=== PATIENT | male | born 1955 | race Caucasian/White ===

== ENCOUNTER 2019-02-01 06:26 | Day surgery (SDC) | payer BC ==
[2019-01-27 16:36] VITALS: BMI 21.7
[~2019-02-01 06:26] MED LIST: DEXAMETHASONE SOD PHOSPHATE 10 MG/ML 1 ML VIAL IV ONE; HEPARIN SODIUM,PORCINE 5,000 UNIT/ML 1 ML VIAL SQ ONE; LIDOCAINE 1% 20 ML VIAL (10MG/ML) FOR IV START INTRADERMA PRN; ONDANSETRON 4 MG/2 ML VIAL IVP ONE; SCOPOLAMINE 1.5MG/72HR PATCH TRANSDERM ONE; ceFAZolin IN SWFI 2 GM/20 ML SYRINGE IVP ONE
[2019-02-01 06:46] VITALS: TEMP 97.9
[2019-02-01] MEDS: LACTATED RINGERS 1,000 ML IV SCH ×2 (07:00→07:01)
[2019-02-01 07:10] LABS: HCT 48.7 % (39.0-53.0); HGB 17.3 gm/dL (13.0-17.5); MCH 35.4 pg (25.0-35.0); MCHC 35.5 g/dL (31.0-37.0); MCV 99.7 fL (80.0-100.0); Mean Platelet Volume 7.1; Platelet Count 116 k/uL (150-450); RBC 4.88 m/uL (4.30-5.90); RDW 11.7 % (11.5-15.5); WBC 4.6 k/uL (3.8-10.6)
[2019-02-01] MEDS ORDERED: MIDAZOLAM (PF) 2 MG/2 ML VIAL IV ONE (07:42)
[2019-02-01] MEDS ORDERED: GLYCOPYRROLATE 0.2 MG/ML 2 ML VIAL ONE (07:51)
[2019-02-01] MEDS ORDERED: LIDOCAINE 1% INJ 10MG/ML (20 ML MDV) ONE (07:51)
[2019-02-01] MEDS ORDERED: NEOSTIGMINE 1 MG/ML 10 ML VIAL ONE (07:51)
[2019-02-01] MEDS ORDERED: HYDROmorphone (PF) 1 MG/ML ONE (07:51)
[2019-02-01] MEDS ORDERED: fentaNYL (PF) 50 MCG/ML 2 ML AMP ONE (07:51)
[2019-02-01] MEDS ORDERED: SUCCINYLCHOLINE CHLORIDE 100 MG/5 ML SYR IV ONE (07:51)
[2019-02-01] MEDS ORDERED: MIDAZOLAM 2 MG/2 ML VIAL ONE (07:51)
[2019-02-01] MEDS ORDERED: PROPOFOL 10 MG/ML 20 ML VIAL IV ONE (07:51)
[2019-02-01] MEDS ORDERED: ROCURONIUM BROMIDE 10 MG/ML 10 ML VIAL IV ONE (07:51)
--- NOTE | 2019-02-01 07:52 | P.GSHP ---
History of Present Illness H&P Date: 02/01/19 Chief Complaint: Bilateral inguinal hernia Patient today for repair of bilateral hernia. He has had these hernias for the last 8-10 years. Right side has typically been larger than the left side. He has had more pain however on the left-hand side. No change in bowel habits. No previous repair. Past Medical History Past Medical History: Hypertension Additional Past Medical History / Comment(s): TINNITUS. ALLYSON INGUINAL HERNIAS. BORDERLINE HIGH CHOLESTEROL. HX KIDNEY STONES. History of Any Multi-Drug Resistant Organisms: None Reported Past Surgical History: Cholecystectomy, Orthopedic Surgery Additional Past Surgical History / Comment(s): LT ELBOW REATTACHED TENDON. KIDNEY STONE ESWL. COLONOSCOPY. Past Anesthesia/Blood Transfusion Reactions: No Reported Reaction Smoking Status: Never smoker - Past Family History Mother Family Medical History: Cancer Medications and Allergies Home Medications Medication Instructions Recorded Confirmed Type Aspirin 162.5 mg PO DAILY 01/27/19 02/01/19 History Cinnamon Bark [Cinnamon] 1,200 mg PO DAILY 01/27/19 02/01/19 History Citracel Capsules 2 cap PO DAILY 01/27/19 02/01/19 History Fish Oil/Dha/Epa [Fish Oil 1,200 1 each PO DAILY 01/27/19 02/01/19 History mg Fish Oil] Multivitamins, Thera [Multivitamin 1 tab PO DAILY 01/27/19 02/01/19 History (formulary)] amLODIPine [Norvasc] 10 mg PO DAILY 01/27/19 02/01/19 History Allergies Allergy/AdvReac Type Severity Reaction Status Date / Time No Known Allergies Allergy Verified 02/01/19 06:36 Surgical - Exam Vital Signs Temp Pulse Resp BP Pulse Ox 97.9 F 82 16 172/99 100 02/01/19 06:43 02/01/19 06:43 02/01/19 06:43 02/01/19 06:43 02/01/19 06:43 Physical exam: General: Well-developed, well-nourished HEENT: Normocephalic, sclerae nonicteric Abdomen: Nontender, nondistended, bilateral inguinal hernia Extremities: No edema Neuro: Alert and oriented Results - Labs 02/01/19 06:58 Abnormal Lab Results - Last 24 Hours (Table) 02/01/19 Range/Units 06:58 MCH 35.4 H (25.0-35.0) pg Plt Count 116 L (150-450) k/uL Assessment and Plan (1) Bilateral inguinal hernia Narrative/Plan: Will proceed with laparoscopic da Tabitha assisted bilateral inguinal hernia repair with mesh, possible open. Risks of bleeding, infection, recurrence, bladder and bowel injury, numbness, nerve injury, conversion to an open procedure were discussed with the patient. The patient understands and wishes to proceed. Current Visit: Yes Status: Acute Code(s): K40.20 - BI INGUINAL HERNIA, W/O OBST OR GANGRENE, NOT SPCF RECUR SNOMED Code(s): 27303515
--- NOTE | 2019-02-01 07:59 | P.PCN ---
Date of Procedure: 02/01/19 Procedure(s) Performed: Preoperative Dx: Epigastric pain, vomiting Postoperative Dx: Gastritis with small erosions Procedure: EGD with Bx Anesthesia: Sedation Endoscopist: Dr. Hercules Specimens: Duodenum, antrum Endoscopic Procedure: The patient was on the endoscopy table in the left decubitus position. The Olympus gastroscope was inserted into the oropharynx and passed under direct visualization to the region of the third portion of the duodenum. From that point the scope was slowly withdrawn inspecting all surfaces carefully. There were no neoplastic inflammatory or polypoid lesions throughout the duodenum. A biopsy of the duodenum took place to evaluate for celiac disease. The pylorus was widely patent. The stomach was carefully inspected. There was gastritis present with small erosions in the prepyloric region. A biopsy of the antrum took place to rule out H. pylori. Retroflexion revealed a normal hiatus. The esophagus was then carefully examined. There were no neoplastic inflammatory or polypoid lesions throughout the visualized esophagus. The patient was then taken to the recovery room in stable condition per anesthesia guidelines. Recommendations: Antiacid therapy. Will order a gastric emptying study.
[2019-02-01] MEDS ORDERED: BUPIVACAIN-EPI 0.25%-1:200,000 30 ML VIAL SQ ONE (08:22)
[2019-02-01] MEDS ORDERED: LACTATED RINGERS 1,000 ML IV ONE (10:12)
[2019-02-01] MEDS ORDERED: HYDROcodone/APAP 5-325MG 1 EACH TAB PO PRN (10:35)
[2019-02-01] MEDS ORDERED: NALOXONE 0.4 MG/ML 1 ML VIAL IV PRN (10:35)
--- NOTE | 2019-02-01 10:43 | P.OP ---
Date of Procedure: 02/01/19 Procedure(s) Performed: PREOPERATIVE DIAGNOSIS: Bilateral inguinal hernia POSTOPERATIVE DIAGNOSIS: Same PROCEDURE: Laparoscopic repair lateral inguinal hernia with the da Tabitha robot assistance with mesh SURGEON: Diomedes EBL: Minimal ANESTHESIA: General COMPLICATIONS: None OPERATIVE PROCEDURE: Patient was placed in the operating table in the supine position. The patient was placed under general anesthesia. The abdomen was prepped and draped in usual sterile fashion. A small curvilinear supraumbilical incision was made. The fascia was retracted anteriorly with Ariana forceps. The Veress needle was inserted. The saline drop test was normal. Insufflation took place to 15 mmHg. A 5 mm trocar was placed into the peritoneal cavity. This was later switched to a 12 mm trocar. 2 additional 8 mm trochars were placed in the right upper quadrant and left upper quadrant under visualization. The robotic arms were then brought in and docked into place. The fenestrated bipolar was used in the left arm and the laparoscopic leyda was utilized in the right arm. A 30 12 mm scope was used in the up position. The peritoneal cavity was inspected. The patient had a moderate sized direct with a tiny indirect hernia on the right side while he had a moderate sized indirect hernia on the left-hand side. The left side was addressed first. The peritoneum was incised in a horizontal fashion cephalad to the internal inguinal ring. Following that careful dissection of the preperitoneal space took place. This took place using both electrocautery, sharp dissection but primarily blunt dissection. Visualization of the pubic tubercle and Blayne's ligament took place medially. Full dissection took place laterally as well. The hernia sac was fully dissected. The right side was addressed then in a similar fashion. The pre- perineal space was fully dissected. The direct hernia was reduced. Once we had adequate space bilaterally the 15 x 10 progrip mesh was advanced into the preperitoneal space and flattened out appropriately to cover all potential hernia sites. Both pieces of the mesh were overlapped medially. No sutures were used. The peritoneal defect was then closed bilaterally using a locking 2- 0 VLok suture. The redundant preperitoneal tissues and sac were incorporated into our closure medially to help prevent future recurrence. The pneumoperitoneum was then evacuated. The fascia at the 12 mm site was closed using the Fer Pitt technique and an 0 Vicryl stitch. The skin of all 3 sites was closed using a 4-0 Monocryl stitch. Skin glue was then applied. DISPOSITION: Stable to recovery room
[2019-02-01] MEDS: HYDROmorphone 0.5 MG/0.5 ML SYRINGE IVP PRN ×2 (11:08→11:23)
[2019-02-01 12:11] VITALS: RESP 18
[2019-02-01 13:07] VITALS: BP 130/74; PULSE 80
== END 2019-02-01 13:14 | disposition home or self-care (01) ==
LOC: OR 06:26
PROVIDERS: ATTEND Surgery
DX: K40.20 Bilateral inguinal hernia, without obstruction or gangrene, not specified as recurrent (principal); E78.00 Pure hypercholesterolemia, unspecified; I10 Essential (primary) hypertension; Z90.49 Acquired absence of other specified parts of digestive tract; Z79.82 Long term (current) use of aspirin; Z79.899 Other long term (current) drug therapy
CPT/HCPCS: 85027